=== PATIENT | male | born 1990 | race African-American/Black ===

== ENCOUNTER 2019-07-10 13:36 | Emergency (ER) | payer SELFPAY ==
[~2019-07-10] VITALS: Ht 177.8 cm; Wt 75.0 kg
[2019-07-10] MEDS ORDERED: SODIUM CHLORIDE 0.9% 1,000 ML IV ONE (14:47)
[2019-07-10 15:30] LABS: CHLORIDE 107 mEq/L (98-107)
[2019-07-10 15:34] LABS: BASOPHILS % 0.1 % (0.0-2.0); HEMATOCRIT. 33.8 % (42.0-52.0); HEMOGLOBIN. 10.8 g/dL (14.0-18.0); LYMPHOCYTES % 8.5 % (20.0-50.0); MEAN CORPUSCULAR HEMOGLOBIN 23.3 pg (28.0-32.0); MEAN CORPUSCULAR VOLUME 73.3 fL (80.0-94.0); MEAN PLATELET VOLUME 8.8 fl (7.4-10.4); MONOCYTES % 6.6 % (2.0-8.0); NEUTROPHILS % 84.8 % (40.0-76.0); PLATELET 213 x1000/uL (130-400); RED BLOOD CELL COUNT 4.62 mill/uL (4.7-6.1); RED CELL DISTRIBUTION WIDTH 15.1 % (11.6-14.6)
[2019-07-10 15:38] LABS: ETHANOL BLOOD < 10 mg/dL
[2019-07-10 18:35] VITALS: BP 139/70
== END 2019-07-10 18:56 | disposition left against medical advice (07) ==
LOC: ER 13:36
DX: T50.991A Poisoning by other drugs, medicaments and biological substances, accidental (unintentional), initial encounter (principal); R41.82 Altered mental status, unspecified; I21.4 Non-ST elevation (NSTEMI) myocardial infarction; E16.2 Hypoglycemia, unspecified; R03.0 Elevated blood-pressure reading, without diagnosis of hypertension; Y92.488 Other paved roadways as the place of occurrence of the external cause
CPT/HCPCS: 36415; 80053; 80320; 82962; 84484; 85025; 93005; 96360; 99284; J7030; Z7610; G0480